=== PATIENT | female | born 1995 | race Caucasian/White ===

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

== ENCOUNTER 2017-02-26 13:03 | Emergency (ER) | payer MEDICAID ==
[2017-02-26 16:14] VITALS: BP 102/65
--- NOTE | 2017-02-26 16:19 | EDM.PDOC ---
ED HPI GENERAL MEDICAL PROBLEM - General Chief Complaint: Abdominal Pain Stated Complaint: 6 WKS PG, STOMACH PAINS Time Seen by Provider: 02/26/17 16:19 Source of Information: Reports: Patient, RN, RN Notes Reviewed History Limitations: Reports: No Limitations - History of Present Illness INITIAL COMMENTS - FREE TEXT/NARRATIVE: G2, P1, Ab0-0, L1 at approx. 6 weeks gest. with c/o midline low abdominal pain and cramping. Denies vaginal bleeding, leak of fluids, dysuria, radiating pain, fever, chills, or N/V/D/C. Admit to a small amt. of whitish discharge. 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 Onset Date: 02/25/17 Duration: Constant Location: Reports: Abdomen Quality: Reports: Ache (w/cramps) Severity: Mild (mild to moderate) Improves with: Reports: None Worsens with: Reports: Movement Context: Reports: Lifting Associated Symptoms: Reports: No Other Symptoms Abdominal Pain Score (Numeric/FACES): 7 - Related Data Allergies Allergy/AdvReac Type Severity Reaction Status Date / Time amoxicillin Allergy Hives Verified 02/26/17 15:39 cefixime [From Suprax] Allergy Hives Verified 02/26/17 15:39 Penicillins Allergy Hives Verified 02/26/17 15:39 Home Meds: Home Meds . 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: Reports: : 2 Para: 1 Other OB/BYN History: baby 18 months Musculoskeletal History: Reports: None Neurological History: Reports: None Psychiatric History: Reports: ADHD, Addiction, Other (See Below) Other Psychiatric History: mild ADHD Endocrine/Metabolic History: Reports: None Hematologic History: Reports: Iron Deficiency Immunologic History: Reports: None Oncologic (Cancer) History: Reports: None Dermatologic History: Reports: Cellulitis - Infectious Disease History Infectious Disease History: Reports: Herpes, Other (See Below) Other Infectious Disease History: staph aureus - Past Surgical History Head Surgeries/Procedures: Reports: None GI Surgical History: Reports: None Musculoskeletal Surgical History: Reports: Other (See Below) Social & Family History - Family History Family Medical History: Noncontributory HEENT: Reports: Other (See Below) Other HEENT Family History: mother benign tumor in ear Cardiac: Reports: Hypertension, [place], Stent Other Cardiac Family History: grandpa Respiratory: Reports: COPD, Other (See Below) Other Respiratory Family Hisory: pneumonia mother : Reports: Cystic Kidney Disease Other Family History: aunt OBGYN: Reports: None Musculoskeletal: Reports: None Neurological: Reports: CVA, Seizure Other Neurological Family History: grandma Psychiatric: Reports: None Endocrine/Metabolic: Reports: None Hematologic: Reports: None Immunologic: Reports: None Oncologic: Reports: None - Tobacco Use Smoking Status *Q: Current Every Day Smoker Years of Tobacco use: 5 Packs/Tins Daily: 1 Second Hand Smoke Exposure: Yes - Caffeine Use Caffeine Use: Reports: Soda - Recreational Drug Use Recreational Drug Use: No Drug Use in Last 12 Months: Yes Recreational Drug Type: Reports: Amphetamines (Speed), Methamphetamine Recreational Drug Use Frequency: Binges Recreational Drug Last Use: can't remember, last in here probably - Sexual History Sexual History: Reports: Multiple Partners, Sexually Active - Living Situation & Occupation Living situation: Reports: Single, with Family Occupation: Employed ED ROS GENERAL - Review of Systems Review Of Systems: ROS reveals no pertinent complaints other than HPI. ED EXAM - Physical Exam Exam: See Below Exam Limited By: No Limitations General Appearance: Alert, WD/WN, No Apparent Distress Head: Atraumatic, Normocephalic Neck: Normal Inspection Respiratory/Chest: No Respiratory Distress, Lungs Clear, Normal Breath Sounds, No Accessory Muscle Use, Chest Non-Tender Cardiovascular: Normal Peripheral Pulses, Regular Rate, Rhythm, No Edema, No Gallop, No JVD, No Murmur, No Rub GI/Abdominal Exam: Normal Bowel Sounds, Soft, No Distention, No Abnormal Bruit, No Mass, Pelvis Stable, Tender (slight tenderness to palpation at suprapubic abdomen). No: Guarding, Rigid, Rebound Rectal Exam: Deferred (Female) Exam: Other (deferred) Movement: Not Appreciated Back Exam: Normal Inspection, Full Range of Motion. No: CVA Tenderness (L), CVA Tenderness (R) Extremities: Normal Inspection, Normal Range of Motion, Non-Tender, Normal Capillary Refill, No Pedal Edema Neurological: Alert, Oriented, CN II-XII Intact, Normal Cognition, Normal Gait, No Motor/Sensory Deficits Psychiatric: Normal Affect, Normal Mood Skin Exam: Warm, Dry, Intact, Normal Color, No Rash Course - Vital Signs Last Recorded V/S: Last Vital Signs Temp 36.6 C 02/26/17 16:14 Pulse 92 02/26/17 16:14 Resp 18 02/26/17 16:14 BP 102/65 02/26/17 16:14 Pulse Ox 98 02/26/17 16:14 - Orders/Labs/Meds Labs: Laboratory Tests 02/26/17 02/26/17 02/26/17 Range/Units 14:53 14:53 17:14 HCG, Quant > 1371 H (0-25) mIU/ml Beta HCG, Quant 19151 mIU/ml Urine Color Yellow (YELLOW) Urine Appearance Slightly cloudy (CLEAR) Urine pH 7.0 (5.0-9.0) Ur Specific [place] 1.015 (1.005-1.030) Urine Protein Negative (NEGATIVE) Urine Glucose (UA) Negative (NEGATIVE) Urine Ketones Trace H (NEGATIVE) Urine Occult Blood Negative (NEGATIVE) Urine Nitrite Negative (NEGATIVE) Urine Bilirubin Negative (NEGATIVE) Urine Urobilinogen 0.2 (0.2-1.0) mg/dL Ur Leukocyte Esterase Small H (NEGATIVE) Urine RBC 0-5 /HPF Urine WBC 0-5 (0-5/HPF) /HPF Ur Epithelial Cells Many H /HPF Urine Bacteria Few (0-FEW/HPF) /HPF Urine HCG, Qual Positive Meds: Medications Discontinued Medications Generic Name Dose Route Start Last Admin Trade Name Freq PRN Reason Stop Dose Admin Metronidazole 500 mg 02/26/17 18:14 Metronidazole PO 02/26/17 18:15 ONETIME ONE Departure - Departure Time of Disposition: 18:21 Disposition: Home, Self-Care 01 Condition: Good Clinical Impression: Abdominal pain during in first trimester, Bacterial vaginosis - Discharge Information Instructions: Abdominal Pain During , Ncho-[id number], Bacterial Vaginosis, Egje-ij-Hafp Forms: ED Department Discharge Additional Instructions: Light activity as tolerated, no lifting over 20lbs until seen by Dr. Maynard. Rx: Flagyl 500mg Follow up in clinic with Dr. Maynard next week for recheck. Return to ER if you develop any heavy vaginal bleeding or other concerning symptoms.
[2017-02-26] MEDS ORDERED: metroNIDAZOLE 250 MG Tab PO ONE (18:14)
== END 2017-02-26 18:30 | disposition home or self-care (01) ==
LOC: DL.ED 13:03
DX: O99.89 Other specified diseases and conditions complicating pregnancy, childbirth and the puerperium (principal); R10.30 Lower abdominal pain, unspecified; O23.591 Infection of other part of genital tract in pregnancy, first trimester; N76.0 Acute vaginitis; B96.89 Other specified bacterial agents as the cause of diseases classified elsewhere; Z88.1 Allergy status to other antibiotic agents; Z88.0 Allergy status to penicillin; O99.331 Smoking (tobacco) complicating pregnancy, first trimester; F17.210 Nicotine dependence, cigarettes, uncomplicated; Z3A.01 Less than 8 weeks gestation of pregnancy
CPT/HCPCS: 36415; 81001; 81025; 84702; 99284; A9270

== ENCOUNTER 2017-03-21 11:43 | Emergency (ER) | payer MEDICAID ==
[2017-03-21 12:49] LABS: ANION GAP 9.7; CHLORIDE,CL 101 mmol/L (101-111); SODIUM,NA 133 mmol/L (135-145)
--- NOTE | 2017-03-21 14:27 | EDM.PDOC ---
ED HPI GENERAL MEDICAL PROBLEM - General Chief Complaint: Chest Pain Stated Complaint: STABBING PAINS IN BACK, SQUEAZING PAINS IN CHEST/R Time Seen by Provider: 03/21/17 13:45 Source of Information: Reports: Patient, RN, RN Notes Reviewed History Limitations: Reports: No Limitations - History of Present Illness INITIAL COMMENTS - FREE TEXT/NARRATIVE: Patient presented with squeezing epigastric/RUQ for 2 weeks intermittently. She has stabbing right flank pain. No fever. She has a cold and is . She also had nausea, vomiting, diarrhea, shortness of breath, and chest pain. She has no history of surgery. She had clindamycin at 4 weeks . Duration: Getting Worse Location: Reports: Abdomen Quality: Reports: Ache Severity: Moderate Improves with: Reports: None Worsens with: Reports: None Associated Symptoms: Reports: No Other Symptoms Right Chest Pain Score (Numeric/FACES): 5 - Related Data Allergies Allergy/AdvReac Type Severity Reaction Status Date / Time amoxicillin Allergy Hives Verified 03/21/17 12:05 cefixime [From Suprax] Allergy Hives Verified 03/21/17 12:05 Penicillins Allergy Hives Verified 03/21/17 12:05 Home Meds: Home Meds Sertraline HCl [Zoloft] 50 mg PO BID 03/21/17 [History] hydrOXYzine HCl [Atarax] 50 mg PO BEDTIME 03/21/17 [History] Past Medical History HEENT History: Reports: Impaired Vision Other HEENT History: wears glasses Cardiovascular History: Reports: Arrhythmia, Heart Murmur Respiratory History: Reports: Asthma, Bronchitis, Recurrent, Pneumonia, Recurrent Gastrointestinal History: Reports: None Genitourinary History: Reports: Pyelonephritis, UTI, Recurrent, Other (See Below ) Other Genitourinary History: herpes 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 OB/BYN History: baby 18 months Musculoskeletal History: Reports: None Neurological History: Reports: None Psychiatric History: Reports: ADHD, Addiction, Other (See Below) Other Psychiatric History: mild ADHD Endocrine/Metabolic History: Reports: None Hematologic History: Reports: Iron Deficiency Immunologic History: Reports: None Oncologic (Cancer) History: Reports: None Dermatologic History: Reports: Cellulitis - Infectious Disease History Infectious Disease History: Reports: Herpes, Other (See Below) Other Infectious Disease History: staph aureus - Past Surgical History Head Surgeries/Procedures: Reports: None GI Surgical History: Reports: None Musculoskeletal Surgical History: Reports: Other (See Below) Social & Family History - Family History Family Medical History: Noncontributory HEENT: Reports: Other (See Below) Other HEENT Family History: mother benign tumor in ear Cardiac: Reports: Hypertension, [place], Stent Other Cardiac Family History: grandpa Respiratory: Reports: COPD, Other (See Below) Other Respiratory Family Hisory: pneumonia mother : Reports: Cystic Kidney Disease Other Family History: aunt OBGYN: Reports: None Musculoskeletal: Reports: None Neurological: Reports: CVA, Seizure Other Neurological Family History: grandma Psychiatric: Reports: None Endocrine/Metabolic: Reports: None Hematologic: Reports: None Immunologic: Reports: None Oncologic: Reports: None - Tobacco Use Smoking Status *Q: Current Every Day Smoker Years of Tobacco use: 5 Packs/Tins Daily: 0.5 Second Hand Smoke Exposure: Yes - Caffeine Use Caffeine Use: Reports: Soda - Recreational Drug Use Recreational Drug Use: No Drug Use in Last 12 Months: Yes Recreational Drug Type: Reports: Amphetamines (Speed), Methamphetamine Recreational Drug Use Frequency: Binges Recreational Drug Last Use: can't remember, last in here probably - Sexual History Sexual History: Reports: Multiple Partners, Sexually Active - Living Situation & Occupation Living situation: Reports: Single, with Family Occupation: Employed ED ROS GENERAL - Review of Systems Review Of Systems: ROS reveals no pertinent complaints other than HPI. ED EXAM, GI/ABD - Physical Exam Exam: See Below Exam Limited By: No Limitations General Appearance: Alert, WD/WN, No Apparent Distress Eyes: Bilateral: Normal Appearance Ears: Normal External Exam, Normal Canal, Hearing Grossly Normal, Normal TMs Nose: Normal Inspection, Normal Mucosa, No Blood Throat/Mouth: Normal Inspection, Normal Lips, Normal Teeth, Normal Gums, Normal Oropharynx, Normal Voice, No Airway Compromise Head: Atraumatic, Normocephalic Neck: Normal Inspection, Supple, Non-Tender, Full Range of Motion Respiratory/Chest: No Respiratory Distress, Lungs Clear, Normal Breath Sounds, No Accessory Muscle Use, Chest Non-Tender Cardiovascular: Normal Peripheral Pulses, Regular Rate, Rhythm, No Edema, No Gallop, No JVD, No Murmur, No Rub GI/Abdominal Exam: Other (tendernessright upper quadrant that radiates to the back.) (Female) Exam: Deferred Rectal (Female) Exam: Deferred Back Exam: Normal Inspection, Full Range of Motion, NT Extremities: Normal Inspection, Normal Range of Motion, Non-Tender, Normal Capillary Refill, No Pedal Edema Neurological: Alert, Oriented, CN II-XII Intact, Normal Cognition, Normal Gait, Normal Reflexes, No Motor/Sensory Deficits Psychiatric: Normal Affect, Normal Mood Skin Exam: Warm, Dry, Intact, Normal Color, No Rash Lymphatic: No Adenopathy EKG INTERPRETATION EKG Date: 03/21/17 Time: 11:57 Rhythm: NSR Rate (Beats/Min): 72 [place]: Normal P-Wave: Present QRS: Normal ST-T: Normal QT: Normal Comparison: No Change Course - Vital Signs Last Recorded V/S: Last Vital Signs Temp 98.4 F 03/21/17 14:40 Pulse 92 03/21/17 14:40 Resp 18 03/21/17 14:40 BP 110/60 03/21/17 14:40 Pulse Ox 100 03/21/17 14:40 - Orders/Labs/Meds Labs: Laboratory Tests 03/21/17 03/21/17 03/21/17 Range/Units 12:18 12:18 12:18 WBC 9.5 (5.0-10.0) 10^3/uL RBC 4.53 (4.2-5.4) 10^6/uL Hgb 13.2 D (12.0-16.0) g/dL Hct 38.5 (37.0-47.0) % MCV 85.0 (80-100) fL MCH 29.1 (27.0-34.0) pg MCHC 34.3 (33.0-35.0) g/dL Plt Count 243 D (150-450) 10^3/uL Neut % (Auto) 74.4 (42.2-75.2) % Lymph % (Auto) 18.6 L (20.5-50.1) % [place] % (Auto) 5.6 (2-8) % Eos % (Auto) 1.2 (1.0-3.0) % Baso % (Auto) 0.2 (0.0-1.0) % Sodium 133 L (135-145) mmol/L Potassium 3.7 (3.6-5.0) mmol/L Chloride 101 (101-111) mmol/L Carbon Dioxide 26.0 (21.0-31.0) mmol/L Anion Gap 9.7 BUN 11 (7-18) mg/dL Creatinine 0.4 L (0.6-1.3) mg/dL Est Cr Clr Drug Dosing 162.49 mL/min Estimated GFR (MDRD) > 60 BUN/Creatinine Ratio 27.50 Glucose 76 (74-105) mg/dL Calcium 8.9 (8.4-10.2) mg/dl Total Bilirubin 1.0 (0.2-1.0) mg/dL AST 25 (10-42) IU/L ALT 24 (10-60) IU/L Alkaline Phosphatase 59 (42-121) IU/L Troponin I < 0.02 (0.00-0.02) ng/ml Total Protein 7.3 (6.7-8.2) g/dl Albumin 4.3 (3.2-5.5) g/dl Globulin 3.0 Albumin/Globulin Ratio 1.43 Lipase 18 L (22-51) U/L Departure - Departure Time of Disposition: 14:23 Disposition: Home, Self-Care 01 Condition: Fair Clinical Impression: Abdominal pain during in first trimester - Discharge Information Instructions: Cholelithiasis, [id number], Abdominal Pain, Adult, [id number]-[id number] , Nausea, Adult, [id number] Referrals: Carolyne Maynard MD [Primary Care Provider] - Forms: ED Department Discharge Additional Instructions: Drink plenty of water Avoid greasy/fatty foods, spicy foods Follow up with your primary care facility next week if no improvement. May use tylenol as directed for pain
[2017-03-21 14:47] VITALS: BP 110/60
--- NOTE | 2017-03-24 14:04 | EKG ---
03/21/2017- YVETTE GOMEZ - EKG done a 21-year-old female showing sinus arrhythmia, normal axis, normal intervals, no acute ST-T wave changes. [facility] /[id number] MTDD
== END 2017-03-21 14:41 | disposition home or self-care (01) ==
LOC: DL.ED 11:43
DX: O99.89 Other specified diseases and conditions complicating pregnancy, childbirth and the puerperium (principal); F17.210 Nicotine dependence, cigarettes, uncomplicated; Z88.0 Allergy status to penicillin; Z88.1 Allergy status to other antibiotic agents; O99.331 Smoking (tobacco) complicating pregnancy, first trimester; Z3A.00 Weeks of gestation of pregnancy not specified
CPT/HCPCS: 36415; 80053; 83690; 84484; 85025; 93005; 99285

== ENCOUNTER 2017-04-03 16:34 | Day surgery (SDC) | payer MEDICAID ==
[2017-04-03] MEDS ORDERED: Ketorolac 30 MG/ML SDV IVPUSH ONE (16:35)
[2017-04-03] MEDS ORDERED: Clindamycin Phosphate 600 MG in Sodium Chloride 0.9% 100 ML IV ONE ×2 (16:35→17:20)
[2017-04-03] MEDS ORDERED: Dexamethasone 4 MG/ML SDV IV ONE (16:35)
[2017-04-03] MEDS ORDERED: Midazolam 1 MG/ML 2 ML SDV IV ONE (16:35)
[2017-04-03] MEDS ORDERED: Propofol 200 MG/20 ML SDV IV ONE (16:35)
[2017-04-03] MEDS ORDERED: fentaNYL 100 MCG/2 ML SDV IV ONE (16:35)
[2017-04-03] MEDS ORDERED: Ondansetron 4 MG/2 ML SDV IV ONE (16:35)
[2017-04-03] MEDS ORDERED: Sodium Chloride 0.9% 200 ML IV ONE (16:35)
[2017-04-03] MEDS ORDERED: Methylergonovine 0.2 MG/1 ML Amp IV ONE (16:35)
[2017-04-03] MEDS ORDERED: Methylergonovine 0.2 MG/1 ML Amp ONE ×2 (16:35→17:18)
[2017-04-03] MEDS ORDERED: Midazolam 1 MG/ML 2 ML SDV ONE (16:53)
[2017-04-03] MEDS ORDERED: Propofol 200 MG/20 ML SDV ONE (16:53)
[2017-04-03] MEDS ORDERED: fentaNYL 100 MCG/2 ML SDV ONE (16:53)
[2017-04-03] MEDS ORDERED: Lactated Ringers 1,000 ML IV ONE (17:10)
[2017-04-03] MEDS ORDERED: Silver Nitrate Applicator Each ONE ×2 (17:17→21:56)
[2017-04-03] MEDS ORDERED: Methylergonovine 0.2 MG/1 ML Amp IM ONE (17:19)
[2017-04-03] MEDS ORDERED: Clindamycin Phosphate 600 MG/4 ML SDV ONE (17:20)
[2017-04-03] MEDS ORDERED: Gentamicin 40 MG/ML 2 ML Vial ONE (17:20)
[2017-04-03] MEDS ORDERED: Sodium Chloride 0.9% 100 ML ONE (17:21)
[2017-04-03] MEDS ORDERED: Sodium Chloride 0.9% 100 ML IV SCH (17:21)
[2017-04-03] MEDS ORDERED: Acetaminophen 325 MG Tab PO PRN (17:33)
[2017-04-03] MEDS ORDERED: Ondansetron 4 MG/2 ML SDV IVPUSH PRN (17:33)
[2017-04-03] MEDS ORDERED: Ketorolac 30 MG/ML SDV IVPUSH SCH (17:45)
[2017-04-03] MEDS ORDERED: Silver Nitrate Applicator Each TOP ONE (18:00)
[2017-04-03] MEDS ORDERED: SERTRALINE HCL 50 MG PO SCH (21:00)
[2017-04-03] MEDS ORDERED: HYDROXYZINE HCL 50 MG PO SCH (21:00)
--- NOTE | 2017-04-03 22:29 | HP ---
CHIEF COMPLAINT: "I am having a miscarriage." HISTORY OF PRESENT ILLNESS: Ms. Quezada is a 21-year-old 3, para 1-0-1-1 female, who reports to the [facility] for a suction dilation and curettage. She has had a recent miscarriage at approximately 7 weeks' gestation with no cardiac activity seen. She was given misoprostol by her primary care provider, Dr. Carolyne Maynard, and she is undergoing an incomplete where she is still cramping and bleeding, and would like to have a suction dilation curettage. She is not eating or drinking anything since this morning. She denies any nausea, vomiting, or diarrhea. No fever or chills. No hematochezia, hematemesis, or hematuria. No dysuria, frequency, urgency with urination. No leg pain, leg edema, or back pain. She is having abdominal pain from all the cramping. She denies any lightheadedness or dizziness. PAST MEDICAL HISTORY: She denies any history of anemia, heart disease, hypertension, thyroid disorder, seizure disorder, thromboembolic disorder, breast lesions, blood transfusions, or kidney disease. FAMILY HISTORY: Positive for [place], heart disease, hypertension, blood clots, sleep apnea, stroke. SOCIAL HISTORY: She smokes 3/4 pack cigarettes a day. She denies any alcohol use or illicit drug use. She does use caffeine. She denies any domestic violence issues. She feels safe at home. She wears seatbelt. She exercises. She works at [employer]. She is single. Her primary care provider is Dr. Carolyne Maynard. TIERCE FILLER HISTORY: Menarche age 15. Menses once a month, lasting for a week. Last menstrual period, 01/12/2017. OBSTETRICAL HISTORY: 2013 Spontaneous Ab. 07/06/2014, delivery of 7 pounds 2 ounces female via normal spontaneous vaginal delivery at term. She does have history of genital herpes in the past. No recent outbreak. MEDICATIONS: 1. vitamins. 2. Tylenol. PAST SURGICAL HISTORY: I and D of left leg abscess, 09/26/2016. ALLERGIES: Amoxicillin, penicillin, Suprax. REVIEW OF SYSTEMS: All pertinent positive and negative review of systems per HPI. All other systems reviewed were negative. A 10-point review of systems was discussed with the patient, she has no issues. OBJECTIVE: General: A well-developed, well-nourished female, in no acute distress. Vital Signs: Stable. Afebrile. HEENT: Unremarkable. Neck: Supple without adenopathy. No thyromegaly. Lungs: Clear to auscultation. No wheezing, rhonchi, or rales noted. Cardiovascular: Regular rate and rhythm without murmurs. Abdomen: Soft, nontender. Bowel sounds good. No rigidity, rebound tenderness, or peritoneal signs noted. She does have some tenderness in the lower pelvis. Back: No CVA tenderness. : She has blood and some blood clots coming from the cervical os that is open. Extremities: No edema, erythema, or tenderness noted. ASSESSMENT: 1. Incomplete . 2. Status post misoprostol given after a missed . PLAN: 1. The patient desires suction dilation and curettage. 2. The risks, benefits, complications and side effects of the procedure were discussed with the patient including infection, bleeding, uterine perforation, scarring, despite this, the patient wants to have the procedure done. 3. All questions answered. 4. CBC and type and Rh being obtained. [facility] /[id number] JOSE
--- NOTE | 2017-04-04 00:02 | OR ---
DATE: 04/03/2017 PREOPERATIVE DIAGNOSIS: Incomplete . POSTOPERATIVE DIAGNOSIS: Incomplete . PROCEDURE: Suction, dilation, curettage. ESTIMATED BLOOD LOSS: 25 mL. FLUIDS: Crystalloid/LR. DRAINS: None. PATHOLOGY: Products of conception/uterine curettings sent. ANESTHESIA: General. COMPLICATIONS: None. FINDINGS: Small amount of products of conception. Eight week size uterus. DESCRIPTION OF PROCEDURE: The patient was taken back to the operating room with an IV running. She was placed supine on the operating room table. After adequate general anesthesia was obtained, she was prepped and draped in usual sterile fashion in the dorsal lithotomy position. A weighted speculum was placed in the posterior vaginal vault. The anterior lip of the cervix was grasped with a single-tooth tenaculum. The cervix was then noted to be dilated 1 cm, so a #10 suction curette was then placed in the intrauterine cavity, and the uterus was curetted 3 times with the suction curette. At this point, the suction curette was removed, and a sharp curettage of the entire endometrial cavity occurred until gritty texture was noted. The suction curette was then replaced into the intrauterine cavity and remaining tissue was removed. The patient tolerated the procedure quite well. The single-tooth tenaculum was removed. There was an area on the anterior lip of the cervix that bled from the tenaculum site. Silver nitrate was placed with excellent hemostasis noted. The patient was having slight oozing from the intrauterine cavity, so 0.2 mg of Methergine was given IM. The patient was also given ketorolac 30 mg IV x1 for pain control after the procedure. All sponges, needle, and instrument counts were correct by the nurse in attendance x2. Excellent hemostasis was noted. The patient received 80 mg of gentamicin IV and 600 mg of clindamycin IV before the procedure. The patient was taken to PACU awake in stable condition. [facility] /[id number]
[2017-04-04 01:15] VITALS: BP 109/66
== END 2017-04-03 19:49 | disposition home or self-care (01) ==
LOC: DL.SDS 16:34
PROVIDERS: ATTEND Obstetrics & Gynecology
DX: O03.4 Incomplete spontaneous abortion without complication (principal); Z88.0 Allergy status to penicillin; Z88.1 Allergy status to other antibiotic agents; F17.210 Nicotine dependence, cigarettes, uncomplicated; Z79.899 Other long term (current) drug therapy
CPT/HCPCS: 36415; 59812; 85025; 86850; 86900; 86901; J1100; J1580; J1885; J2210; J2250; J2405; J2704; J3010; J7050; J7120; S0077

== ENCOUNTER 2018-05-15 15:20 | Emergency (ER) | payer SELFPAY ==
[2018-05-15 15:27] VITALS: BP 117/69
--- NOTE | 2018-05-15 15:49 | EDM.PDOC ---
Scribed by Kayla Serrano 05/15/18 0178 for Camille Correa NP ED HPI GENERAL MEDICAL PROBLEM - General Chief Complaint: Skin Complaint Stated Complaint: ABCESS ON BUTTOCK [id number] Time Seen by Provider: 05/15/18 15:35 Source of Information: Reports: Patient, RN, RN Notes Reviewed History Limitations: Reports: No Limitations - History of Present Illness INITIAL COMMENTS - FREE TEXT/NARRATIVE: Patient presents to ER with complaint of abscess on buttock. She noticed it first yesterday and states she feels it drained yesterday. She rates the pain a 5/10 and hurts more when sitting on it. She has had MRSA, fever, chills and nausea. She has had no vomiting or diarrhea. Onset: Gradual Duration: Getting Worse Location: Reports: Other (buttocks) Quality: Reports: Ache Severity: Moderate Improves with: Reports: None Worsens with: Reports: None Associated Symptoms: Reports: No Other Symptoms Buttock Pain Score (Numeric/FACES): 5 - Related Data Allergies Allergy/AdvReac Type Severity Reaction Status Date / Time amoxicillin Allergy Hives Verified 05/15/18 15:32 cefixime [From Suprax] Allergy Hives Verified 05/15/18 15:32 Penicillins Allergy Hives Verified 05/15/18 15:32 Home Meds: Home Meds Sertraline HCl [Zoloft] 50 mg PO BID 03/21/17 [History] hydrOXYzine HCl [Atarax] 50 mg PO BEDTIME 03/21/17 [History] traZODone HCl [Trazodone HCl] 150 mg PO DAILY 12/11/17 [History] Naltrexone 50 mg PO DAILY 01/27/18 [History] cloNIDine [Catapres] 0.1 mg PO Q8H 01/27/18 [History] Past Medical History HEENT History: Reports: Impaired Vision Other HEENT History: wears glasses Cardiovascular History: Reports: Arrhythmia, Heart Murmur Respiratory History: Reports: Asthma, Bronchitis, Recurrent, Pneumonia, Recurrent Gastrointestinal History: Reports: None Genitourinary History: Reports: Pyelonephritis, UTI, Recurrent, Other (See Below ) Other Genitourinary History: herpes 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: , 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 , Other (See Below) Other 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 History: baby 18 months Musculoskeletal History: Reports: None Neurological History: Reports: None Psychiatric History: Reports: ADHD, Addiction, Anxiety, PTSD, Other (See Below) Other Psychiatric History: mild ADHD Endocrine/Metabolic History: Reports: None Hematologic History: Reports: Anemia, Iron Deficiency Immunologic History: Reports: None Oncologic (Cancer) History: Reports: None Dermatologic History: Reports: Cellulitis - Infectious Disease History Infectious Disease History: Reports: Herpes, MRSA Other Infectious Disease History: staph aureus - Past Surgical History Head Surgeries/Procedures: Reports: None HEENT Surgical History: Reports: LASIK GI Surgical History: Reports: None Musculoskeletal Surgical History: Reports: Other (See Below) Other Musculoskeletal Surgeries/Procedures:: upper left thigh cellulitis with subsequent surgery Social & Family History - Family History Family Medical History: Noncontributory HEENT: Reports: Other (See Below) Other HEENT Family History: mother benign tumor in ear Cardiac: Reports: Hypertension, [place], Stent Other Cardiac Family History: grandpa Respiratory: Reports: COPD, Other (See Below) Other Respiratory Family Hisory: pneumonia mother : Reports: Cystic Kidney Disease Other Family History: aunt OBGYN: Reports: None Musculoskeletal: Reports: None Neurological: Reports: CVA, Seizure Other Neurological Family History: grandma Psychiatric: Reports: None Endocrine/Metabolic: Reports: None Hematologic: Reports: None Immunologic: Reports: None Oncologic: Reports: None - Tobacco Use Smoking Status *Q: Current Every Day Smoker Years of Tobacco use: 5 Packs/Tins Daily: 1 Used Tobacco, but Quit: No - Caffeine Use Caffeine Use: Reports: Soda - Recreational Drug Use Recreational Drug Use: Yes Recreational Drug Type: Reports: Methamphetamine - Sexual History Sexual History: Reports: Multiple Partners, Sexually Active - Living Situation & Occupation Living situation: Reports: Single, with Family Occupation: Employed ED ROS GENERAL - Review of Systems Review Of Systems: ROS reveals no pertinent complaints other than HPI. ED EXAM, SKIN/RASH Exam: See Below Exam Limited By: No Limitations General Appearance: Anxious Eye Exam: Bilateral Eye: EOMI, Normal Inspection, PERRL Ears: Normal External Exam, Normal Canal, Hearing Grossly Normal, Normal TMs Nose: Normal Inspection, Normal Mucosa, No Blood Throat/Mouth: Normal Inspection, Normal Lips, Normal Teeth, Normal Gums, Normal Oropharynx, Normal Voice, No Airway Compromise Head: Atraumatic, Normocephalic Neck: Normal Inspection, Supple, Non-Tender, Full Range of Motion Respiratory/Chest: No Respiratory Distress, Lungs Clear, Normal Breath Sounds, No Accessory Muscle Use, Chest Non-Tender Cardiovascular: Normal Peripheral Pulses, Regular Rate, Rhythm, No Edema, No Gallop, No JVD, No Murmur, No Rub GI/Abdominal: Normal Bowel Sounds, Soft, Non-Tender, No Organomegaly, No Distention, No Abnormal Bruit, No Mass (Female) Exam: Deferred Rectal (Female) Exam: Deferred Back Exam: Normal Inspection, Full Range of Motion, NT Extremities: Normal Inspection, Normal Range of Motion, Non-Tender, No Pedal Edema, Normal Capillary Refill Neurological: Alert, Oriented, CN II-XII Intact, Normal Cognition, Normal Gait, Normal Reflexes, No Motor/Sensory Deficits Psychiatric: Anxious Skin: Other (1cm x 0.5cm abscess to left upper buttock. No drainage. Dry.) Lymphatic: No Adenopathy Course - Vital Signs Last Recorded V/S: Last Vital Signs Temp 98.5 F 05/15/18 15:25 Pulse 91 05/15/18 15:25 Resp 16 05/15/18 15:25 BP 117/69 05/15/18 15:25 Pulse Ox 99 05/15/18 15:25 Departure - Departure Time of Disposition: 15:47 Disposition: Home, Self-Care 01 Condition: Good Clinical Impression: Abscess, History of MRSA infection - Discharge Information *PRESCRIPTION DRUG MONITORING PROGRAM REVIEWED*: No *COPY OF PRESCRIPTION DRUG MONITORING REPORT IN PATIENT MOLLY: No Instructions: Skin Abscess, [id number] Forms: ED Department Discharge Additional Instructions: RX: Bactroban, Bactrim Follow up with your primary care facility I have read and agree with the documentation that has been completed regarding this visit. By signing this record, I attest that the documentation was completed in my physical presence and is an accurate record of the encounter.
== END 2018-05-15 15:52 | disposition home or self-care (01) ==
LOC: DL.ED 15:20
DX: L02.31 Cutaneous abscess of buttock (principal); J45.909 Unspecified asthma, uncomplicated; F41.9 Anxiety disorder, unspecified; Z88.1 Allergy status to other antibiotic agents; Z88.8 Allergy status to other drugs, medicaments and biological substances; Z79.899 Other long term (current) drug therapy; Z86.14 Personal history of Methicillin resistant Staphylococcus aureus infection
CPT/HCPCS: 99282

== ENCOUNTER 2018-06-20 20:52 | Emergency (ER) | payer SELFPAY | END 2018-06-20 22:20 | disposition left against medical advice (07) | LOC: DL.ED 20:52 | DX: Z53.21 Procedure and treatment not carried out due to patient leaving prior to being seen by health care provider (principal) ==

== ENCOUNTER 2018-06-21 09:47 | Emergency (ER) | payer SELFPAY ==
[2018-06-21 11:00] VITALS: BP 128/74
--- NOTE | 2018-06-21 11:56 | CR ---
Clinical history: 23-year-old female "rolled" right foot (one week ago). Interpretation: AP lateral views right foot unremarkable. No sign of right foot fracture or joint dislocation. No foreign bodies. No heel spurs. (Ankle joint on the margin of the film appears symmetrically intact) CONCLUSION: Negative exam.
--- NOTE | 2018-06-21 12:21 | EDM.PDOC ---
ED HPI GENERAL MEDICAL PROBLEM - General Chief Complaint: Lower Extremity Injury/Pain Stated Complaint: BROKE FOOT [id number] Time Seen by Provider: 06/21/18 11:41 Source of Information: Reports: Patient, RN, RN Notes Reviewed History Limitations: Reports: No Limitations - History of Present Illness INITIAL COMMENTS - FREE TEXT/NARRATIVE: Patient presents to ER with complaint of twisting right ankle/foot on . She has had pain on and off since then with cramping. Pain today is radiating up to back of right evelyne. She rates the pain as 6/10. No swelling. Onset Date: 06/17/18 Duration: Getting Worse Location: Reports: Lower Extremity, Right Quality: Reports: Ache Severity: Moderate Improves with: Reports: None Worsens with: Reports: None Associated Symptoms: Reports: No Other Symptoms Right Foot Pain Score (Numeric/FACES): 5 - Related Data Allergies Allergy/AdvReac Type Severity Reaction Status Date / Time amoxicillin Allergy Hives Verified 06/21/18 11:00 cefixime [From Suprax] Allergy Hives Verified 06/21/18 11:00 Penicillins Allergy Hives Verified 06/21/18 11:00 Home Meds: Home Meds Sertraline HCl [Zoloft] 50 mg PO BID 03/21/17 [History] hydrOXYzine HCl [Atarax] 50 mg PO BEDTIME 03/21/17 [History] traZODone HCl [Trazodone HCl] 150 mg PO DAILY 12/11/17 [History] Naltrexone 50 mg PO DAILY 01/27/18 [History] cloNIDine [Catapres] 0.1 mg PO Q8H 01/27/18 [History] Past Medical History HEENT History: Reports: Impaired Vision Other HEENT History: wears glasses Cardiovascular History: Reports: Arrhythmia, Heart Murmur Respiratory History: Reports: Asthma, Bronchitis, Recurrent, Pneumonia, Recurrent Gastrointestinal History: Reports: None Genitourinary History: Reports: Pyelonephritis, UTI, Recurrent, Other (See Below ) Other Genitourinary History: herpes 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: , 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 , Other (See Below) Other ELECTRON MICROSCOPIST History: baby 18 months Musculoskeletal History: Reports: None Neurological History: Reports: None Psychiatric History: Reports: ADHD, Addiction, Anxiety, PTSD, Other (See Below) Other Psychiatric History: mild ADHD Endocrine/Metabolic History: Reports: None Hematologic History: Reports: Anemia, Iron Deficiency Immunologic History: Reports: None Oncologic (Cancer) History: Reports: None Dermatologic History: Reports: Cellulitis - Infectious Disease History Infectious Disease History: Reports: Herpes, MRSA Other Infectious Disease History: staph aureus - Past Surgical History Head Surgeries/Procedures: Reports: None HEENT Surgical History: Reports: LASIK GI Surgical History: Reports: None Musculoskeletal Surgical History: Reports: Other (See Below) Other Musculoskeletal Surgeries/Procedures:: upper left thigh cellulitis with subsequent surgery Social & Family History - Family History Family Medical History: Noncontributory HEENT: Reports: Other (See Below) Other HEENT Family History: mother benign tumor in ear Cardiac: Reports: Hypertension, [place], Stent Other Cardiac Family History: grandpa Respiratory: Reports: COPD, Other (See Below) Other Respiratory Family Hisory: pneumonia mother : Reports: Cystic Kidney Disease Other Family History: aunt OBGYN: Reports: None Musculoskeletal: Reports: None Neurological: Reports: CVA, Seizure Other Neurological Family History: grandma Psychiatric: Reports: None Endocrine/Metabolic: Reports: None Hematologic: Reports: None Immunologic: Reports: None Oncologic: Reports: None - Tobacco Use Smoking Status *Q: Current Every Day Smoker Years of Tobacco use: 7 Packs/Tins Daily: 0.5 - Caffeine Use Caffeine Use: Reports: Soda - Recreational Drug Use Recreational Drug Use: No - Sexual History Sexual History: Reports: Multiple Partners, Sexually Active - Living Situation & Occupation Living situation: Reports: Single, with Family Occupation: Employed Review of Systems - Review of Systems Review Of Systems: ROS reveals no pertinent complaints other than HPI. ED EXAM, GENERAL - Physical Exam Exam: See Below Exam Limited By: No Limitations General Appearance: Alert, WD/WN, No Apparent Distress Eye Exam: Bilateral Eye: EOMI, Normal Inspection, PERRL Ears: Normal External Exam, Normal Canal, Hearing Grossly Normal, Normal TMs Nose: Normal Inspection, Normal Mucosa, No Blood Throat/Mouth: Normal Inspection, Normal Lips, Normal Teeth, Normal Gums, Normal Oropharynx, Normal Voice, No Airway Compromise Head: Atraumatic, Normocephalic Neck: Normal Inspection, Supple, Non-Tender, Full Range of Motion Respiratory/Chest: No Respiratory Distress, Lungs Clear, Normal Breath Sounds, No Accessory Muscle Use, Chest Non-Tender Cardiovascular: Normal Peripheral Pulses, Regular Rate, Rhythm, No Edema, No Gallop, No JVD, No Murmur, No Rub GI/Abdominal: Normal Bowel Sounds, Soft, Non-Tender, No Organomegaly, No Distention, No Abnormal Bruit, No Mass (Female) Exam: Deferred Rectal (Female) Exam: Deferred Back Exam: Normal Inspection, Full Range of Motion, NT Extremities: Other (decreased range of motion right foot.) Neurological: Alert, Oriented, CN II-XII Intact, Normal Cognition, Normal Gait, Normal Reflexes, No Motor/Sensory Deficits Psychiatric: Normal Affect, Normal Mood Skin Exam: Warm, Dry, Intact, Normal Color, No Rash Lymphatic: No Adenopathy Course - Vital Signs Last Recorded V/S: Last Vital Signs Temp 98.7 F 06/21/18 10:55 Pulse 102 H 06/21/18 10:55 Resp 16 06/21/18 10:55 BP 128/74 06/21/18 10:55 Pulse Ox 100 06/21/18 10:55 - Orders/Labs/Meds Labs: Laboratory Tests 06/21/18 06/21/18 Range/Units 11:08 11:08 Urine Color Yellow (YELLOW) Urine Appearance Clear (CLEAR) Urine pH 5.0 (5.0-9.0) Ur Specific [place] <= 1.005 (1.005-1.030) Urine Protein Negative (NEGATIVE) Urine Glucose (UA) Negative (NEGATIVE) Urine Ketones Negative (NEGATIVE) Urine Occult Blood Negative (NEGATIVE) Urine Nitrite Negative (NEGATIVE) Urine Bilirubin Negative (NEGATIVE) Urine Urobilinogen 0.2 (0.2-1.0) mg/dL Ur Leukocyte Esterase Negative (NEGATIVE) Urine HCG, Qual Negative - Radiology Interpretation Free Text/Narrative:: Right foot xray: No acute findings See rad report Departure - Departure Time of Disposition: 12:20 Disposition: Home, Self-Care 01 Condition: Fair Clinical Impression: Plantar fasciitis - Discharge Information *PRESCRIPTION DRUG MONITORING PROGRAM REVIEWED*: No *COPY OF PRESCRIPTION DRUG MONITORING REPORT IN PATIENT MOLLY: No Instructions: Plantar Fasciitis Referrals: PCP,None [Primary Care Provider] - Forms: ED Department Discharge Additional Instructions: Ice the foot when possible Rest when possible Follow up with podiatry Continue to use Tylenol and/or Ibuprofen as directed for pain
== END 2018-06-21 12:24 | disposition home or self-care (01) ==
LOC: DL.ED 09:47
DX: M72.2 Plantar fascial fibromatosis (principal); J45.909 Unspecified asthma, uncomplicated; D50.9 Iron deficiency anemia, unspecified; F17.210 Nicotine dependence, cigarettes, uncomplicated; Z88.1 Allergy status to other antibiotic agents; Z88.0 Allergy status to penicillin; Z79.899 Other long term (current) drug therapy
CPT/HCPCS: 73620-RT; 81003; 81025; 99283-25

== ENCOUNTER 2018-11-20 19:48 | Emergency (ER) | payer MEDICAID ==
[2018-11-20 19:59] VITALS: BP 113/65; PULSE 100
--- NOTE | 2018-11-20 20:05 | EDM.PDOC ---
ED HPI GENERAL MEDICAL PROBLEM - General Chief Complaint: Abdominal Pain Stated Complaint: CRAMPS, ONE MONTH MAYBE... Time Seen by Provider: 11/20/18 20:03 Source of Information: Reports: Patient History Limitations: Reports: No Limitations - History of Present Illness INITIAL COMMENTS - FREE TEXT/NARRATIVE: onset yesterday, has been moving, denies bleeding. [id number]. Bilateral Lower Abdomen Pain Score (Numeric/FACES): 7 - Related Data Allergies Allergy/AdvReac Type Severity Reaction Status Date / Time amoxicillin Allergy Hives Verified 11/20/18 20:01 cefixime [From Suprax] Allergy Hives Verified 11/20/18 20:01 Penicillins Allergy Hives Verified 11/20/18 20:01 Past Medical History HEENT History: Reports: Impaired Vision Other HEENT History: wears glasses Cardiovascular History: Reports: Arrhythmia, Heart Murmur Respiratory History: Reports: Asthma, Bronchitis, Recurrent, Pneumonia, Recurrent Gastrointestinal History: Reports: None Genitourinary History: Reports: Pyelonephritis, UTI, Recurrent, Other (See Below ) Other Genitourinary History: herpes 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: , 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 , Other (See Below) Other INVENTORY SPECIALIST History: baby 18 months Musculoskeletal History: Reports: None Neurological History: Reports: None Psychiatric History: Reports: ADHD, Addiction, Anxiety, PTSD, Other (See Below) Other Psychiatric History: mild ADHD Endocrine/Metabolic History: Reports: None Hematologic History: Reports: Anemia, Iron Deficiency Immunologic History: Reports: None Oncologic (Cancer) History: Reports: None Dermatologic History: Reports: Cellulitis - Infectious Disease History Infectious Disease History: Reports: Herpes, MRSA Other Infectious Disease History: staph aureus - Past Surgical History Head Surgeries/Procedures: Reports: None HEENT Surgical History: Reports: LASIK GI Surgical History: Reports: None Musculoskeletal Surgical History: Reports: Other (See Below) Other Musculoskeletal Surgeries/Procedures:: upper left thigh cellulitis with subsequent surgery Social & Family History - Family History Family Medical History: Noncontributory HEENT: Reports: Other (See Below) Other HEENT Family History: mother benign tumor in ear Cardiac: Reports: Hypertension, [place], Stent Other Cardiac Family History: grandpa Respiratory: Reports: COPD, Other (See Below) Other Respiratory Family Hisory: pneumonia mother : Reports: Cystic Kidney Disease Other Family History: aunt OBGYN: Reports: None Musculoskeletal: Reports: None Neurological: Reports: CVA, Seizure Other Neurological Family History: grandma Psychiatric: Reports: None Endocrine/Metabolic: Reports: None Hematologic: Reports: None Immunologic: Reports: None Oncologic: Reports: None - Caffeine Use Caffeine Use: Reports: Soda - Sexual History Sexual History: Reports: Multiple Partners, Sexually Active - Living Situation & Occupation Living situation: Reports: Single, with Family Occupation: Employed ED ROS GENERAL - Review of Systems Review Of Systems: ROS reveals no pertinent complaints other than HPI. ED EXAM, GI/ABD - Physical Exam Exam: See Below Exam Limited By: No Limitations General Appearance: Alert, WD/WN, Mild Distress, Other. No: Active Emesis ( discomfort) Ears: Hearing Grossly Normal Throat/Mouth: Normal Voice, No Airway Compromise Head: Atraumatic Neck: Non-Tender, Full Range of Motion Respiratory/Chest: No Respiratory Distress Cardiovascular: Regular Rate, Rhythm GI/Abdominal Exam: Tender, Other (low abd). No: Distended, Guarding, Rigid, Rebound Neurological: Alert, Oriented, Normal Cognition, Normal Gait, No Motor/Sensory Deficits Psychiatric: Normal Affect, Normal Mood Skin Exam: Warm, Dry, Normal Color Lymphatic: No Adenopathy Course - Vital Signs Last Recorded V/S: Last Vital Signs Temp 36.6 C 11/20/18 19:54 Pulse 100 11/20/18 19:54 Resp 18 11/20/18 19:54 BP 113/65 11/20/18 19:54 Pulse Ox 100 11/20/18 19:54 - Orders/Labs/Meds Orders: Active Orders 24 hr Category Date Time Status OB Ltd 1 or More Fetus [US] Urgent Exams 11/20/18 20:59 Ordered Labs: Laboratory Tests 11/20/18 11/20/18 11/20/18 Range/Units 20:05 20:05 20:10 WBC 16.9 H (5.0-10.0) 10^3/uL RBC 4.75 (4.2-5.4) 10^6/uL Hgb 13.6 D (12.0-16.0) g/dL Hct 38.5 (37.0-47.0) % MCV 81.1 (80-100) fL MCH 28.6 (27.0-34.0) pg MCHC 35.3 H (33.0-35.0) g/dL Plt Count 286 (150-450) 10^3/uL Neut % (Auto) 76.4 H (42.2-75.2) % Lymph % (Auto) 17.5 L (20.5-50.1) % [place] % (Auto) 4.3 (2-8) % Eos % (Auto) 1.6 (1.0-3.0) % Baso % (Auto) 0.2 (0.0-1.0) % Sodium (135-145) mmol/L Potassium (3.6-5.0) mmol/L Chloride (101-111) mmol/L Carbon Dioxide (21.0-31.0) mmol/L Anion Gap BUN (7-18) mg/dL Creatinine (0.6-1.3) mg/dL Est Cr Clr Drug Dosing mL/min Estimated GFR (MDRD) BUN/Creatinine Ratio Glucose (74-105) mg/dL Calcium (8.4-10.2) mg/dl Total Bilirubin (0.2-1.0) mg/dL AST (10-42) IU/L ALT (10-60) IU/L Alkaline Phosphatase (42-121) IU/L Total Protein (6.7-8.2) g/dl Albumin (3.2-5.5) g/dl Globulin Albumin/Globulin Ratio HCG, Quant (0-25) mIU/ml Beta HCG, Quant mIU/ml Urine Color Yellow (YELLOW) Urine Appearance Clear (CLEAR) Urine pH 6.0 (5.0-9.0) Ur Specific [place] 1.025 (1.005-1.030) Urine Protein Negative (NEGATIVE) Urine Glucose (UA) Negative (NEGATIVE) Urine Ketones 40 H (NEGATIVE) Urine Occult Blood Negative (NEGATIVE) Urine Nitrite Negative (NEGATIVE) Urine Bilirubin Negative (NEGATIVE) Urine Urobilinogen 1.0 (0.2-1.0) mg/dL Ur Leukocyte Esterase Negative (NEGATIVE) Urine Opiates Screen Negative (NEGATIVE) Ur Oxycodone Screen Negative (NEGATIVE) Urine Methadone Screen Negative (NEGATIVE) Ur Barbiturates Screen Negative (NEGATIVE) U Tricyclic Antidepress Negative (NEGATIVE) Ur Phencyclidine Scrn Negative (NEGATIVE) Ur Amphetamine Screen Positive H (NEGATIVE) U Methamphetamines Scrn Positive H (NEGATIVE) Urine MDMA Screen Negative (NEGATIVE) U Benzodiazepines Scrn Negative (NEGATIVE) Urine Cocaine Screen Negative (NEGATIVE) U Marijuana (THC) Screen Negative (NEGATIVE) 11/20/18 11/20/18 Range/Units 20:10 20:10 WBC (5.0-10.0) 10^3/uL RBC (4.2-5.4) 10^6/uL Hgb (12.0-16.0) g/dL Hct (37.0-47.0) % MCV (80-100) fL MCH (27.0-34.0) pg MCHC (33.0-35.0) g/dL Plt Count (150-450) 10^3/uL Neut % (Auto) (42.2-75.2) % Lymph % (Auto) (20.5-50.1) % [place] % (Auto) (2-8) % Eos % (Auto) (1.0-3.0) % Baso % (Auto) (0.0-1.0) % Sodium 136 (135-145) mmol/L Potassium 3.1 L (3.6-5.0) mmol/L Chloride 99 L (101-111) mmol/L Carbon Dioxide 26.0 (21.0-31.0) mmol/L Anion Gap 14.1 BUN 10 (7-18) mg/dL Creatinine 0.4 L (0.6-1.3) mg/dL Est Cr Clr Drug Dosing 159.80 mL/min Estimated GFR (MDRD) > 60 BUN/Creatinine Ratio 25.00 Glucose 88 (74-105) mg/dL Calcium 9.2 (8.4-10.2) mg/dl Total Bilirubin 1.1 H (0.2-1.0) mg/dL AST 22 (10-42) IU/L ALT 18 (10-60) IU/L Alkaline Phosphatase 72 (42-121) IU/L Total Protein 7.5 (6.7-8.2) g/dl Albumin 4.3 (3.2-5.5) g/dl Globulin 3.2 Albumin/Globulin Ratio 1.34 HCG, Quant > 1359 H (0-25) mIU/ml Beta HCG, Quant 10451 mIU/ml Urine Color (YELLOW) Urine Appearance (CLEAR) Urine pH (5.0-9.0) Ur Specific [place] (1.005-1.030) Urine Protein (NEGATIVE) Urine Glucose (UA) (NEGATIVE) Urine Ketones (NEGATIVE) Urine Occult Blood (NEGATIVE) Urine Nitrite (NEGATIVE) Urine Bilirubin (NEGATIVE) Urine Urobilinogen (0.2-1.0) mg/dL Ur Leukocyte Esterase (NEGATIVE) Urine Opiates Screen (NEGATIVE) Ur Oxycodone Screen (NEGATIVE) Urine Methadone Screen (NEGATIVE) Ur Barbiturates Screen (NEGATIVE) U Tricyclic Antidepress (NEGATIVE) Ur Phencyclidine Scrn (NEGATIVE) Ur Amphetamine Screen (NEGATIVE) U Methamphetamines Scrn (NEGATIVE) Urine MDMA Screen (NEGATIVE) U Benzodiazepines Scrn (NEGATIVE) Urine Cocaine Screen (NEGATIVE) U Marijuana (THC) Screen (NEGATIVE) - Re-Assessments/Exams Free Text/Narrative Re-Assessment/Exam: 11/20/18 22:05 results discussed with pt who is feeling fine presently. Departure - Departure Time of Disposition: 22:05 Disposition: Home, Self-Care 01 Condition: Good Clinical Impression: Intrauterine - Discharge Information Forms: ED Department Discharge Additional Instructions: 1) rest and avoid vigorous activities 2) follow up with OB 3) recheck as needed - My Orders Last 24 Hours: My Active Orders 11/20/18 20:59 OB Ltd 1 or More Fetus [US] Urgent - Assessment/Plan Last 24 Hours: My Active Orders 11/20/18 20:59 OB Ltd 1 or More Fetus [US] Urgent
[2018-11-20 20:36] LABS: ANION GAP 14.1; CHLORIDE,CL 99 mmol/L (101-111); SODIUM,NA 136 mmol/L (135-145)
== END 2018-11-20 22:13 | disposition home or self-care (01) ==
LOC: DL.ED 19:48
DX: O99.89 Other specified diseases and conditions complicating pregnancy, childbirth and the puerperium (principal); R10.30 Lower abdominal pain, unspecified; Z88.1 Allergy status to other antibiotic agents; Z88.8 Allergy status to other drugs, medicaments and biological substances; Z88.0 Allergy status to penicillin
CPT/HCPCS: 36415; 76815; 80053; 80305-QW; 81003; 84702; 85025; 99284-25